=== PATIENT | female | born 1970 | race Caucasian/White ===

== ENCOUNTER → 2019-05-05 13:29 | Outpatient (CLI) | payer OTHER, SELFPAY ==
--- NOTE | 2019-05-05 | DI.CT.S_ITS ---
PROCEDURE: CT LE RT WO CON INDICATIONS: R Calcaneous Fracture TECHNIQUE: Noncontrast 1-1.5 mm axial sections acquired from above the tibiotalar joint to the bottom of the calcaneus, with coronal and sagittal reformats. COMPARISON: [facility] Outside Film, RG, CALCANEUS MIN 2VW (RT), 04/29/2019, 21:13. FINDINGS: Image quality: Excellent. Bones: Severely comminuted calcaneal fracture is seen with intra-articular extension to the subtalar joint. There is mild overall height loss. The talus appears grossly intact. There is suggestion of pre-existing lytic or cystic lesion, with sclerotic margins in particular the anterior calcaneus on image 67 series 5 (please see montage image). Potentially this could represent large intraosseous lipoma. Soft tissues: Circumferential hindfoot subcutaneous edema. Achilles tendon appears grossly intact IMPRESSION: Severely comminuted calcaneal fracture with mild height loss. Intra-articular extension to the subtalar joint where there is gross articular surface irregularity. The appearance suggests pre-existing lytic or cystic lesion with sclerotic margins, such as large intraosseous lipoma, therefore potentially pathologic fracture. If clinically warranted, further evaluation with contrast-enhanced MRI could be performed at appropriate time. Dictated by: Don Arteaga M.D. on 05/05/2019 at 15:03 Approved by: Don Arteaga M.D. on 05/05/2019 at 15:08
== END ==
PROVIDERS: Visit Provider Orthopaedic Surgery
DX: S92.061A Displaced intraarticular fracture of right calcaneus, initial encounter for closed fracture (principal); X58.XXXA Exposure to other specified factors, initial encounter
CPT/HCPCS: 73700

== ENCOUNTER 2019-05-13 09:52 | Day surgery (SDC) | payer OTHER, SELFPAY ==
[2019-05-12 14:46] VITALS: BMI 27.4
[2019-05-13] VITALS (15 sets, daily range): BP systolic 94–129; BP diastolic 58–78; PULSE 68–99; RESP 12–20; TEMP 36.3–37; O2SAT 95–99; BMI 27.4
--- NOTE | 2019-05-13 | PATH_ITS ---
[facility] Accession Number: [id number] . 01 Material submitted: . ankle - RIGHT ANKLE . 01 Clinical history: . RIGHT CALCANEOUS LESION . 01 Diagnosis: Right Ankle, Calcaneus Lesion, Biopsy: Trabecular bone and interspersed marrow with changes consistent with fracture site changes. Focal collection of adipocytes and fat necrosis, suggestive of a benign intraosseous lipoma, see comment. Negative for malignancy. [facility]05[facility] . 01 Comment: The histologic features are consistent with fracture site changes and also compatible with the radiologic impression of intraosseous lipoma. . There is no evidence of malignancy. . 01 Electronically signed: . Terrell Hansen MD, Pathologist NPI- [id number] . 01 Gross description: . Received in formalin, labeled R calcaneus lesion, are multiple fragments of niño-brown semi-translucent and focally gritty tissue (2.6 x 2.0 x 0.2 cm in aggregate). Filtered, decalcified, and entirely submitted in cassette A1. ([id number]) /MRV . 01 Pathologist provided ICD-10: S92.061D . 01 CPT . 475908, [id number] Performed at: [address] [facility], [place], [place] [id number] MD Issac Lopez MD Phone: [phone]
--- NOTE | 2019-05-13 | DI.RAD.S_ITS ---
PROCEDURE: XR ANKLE RT MIN 3V INDICATIONS: ORIF RIGHT ANKLE TECHNIQUE: 8 views of the ankle were acquired. COMPARISON: None. FINDINGS: Spot intraoperative fluoroscopic images demonstrating calcaneal fixation with malleable plate and screws. There is expected intraoperative alignment. Dictated by: Don Arteaga M.D. on 05/13/2019 at 14:26 Approved by: Don Arteaga M.D. on 05/13/2019 at 14:27
--- NOTE | 2019-05-13 10:47 | PM.PREOP ---
Pre-operative Note Interval Note History & Physical reviewed/Exam performed by Physician: Yes Changes to H&P: No
[2019-05-13] MEDS: CEFAZOLIN 2 GM/100 ML FROZ.PIGGY IV ×2 (11:20→19:53)
--- NOTE | 2019-05-13 11:22 | SUR.PREOP ---
Block start time [1055]. Popliteal and Adductor blocks performed by Dr. Dariusz Yancey on OPD room 5. Monitoring initiated and maintained throughout procedure. Medications administered by anesthesiologist. Oxygen given per anesthesiologist instructions. Patient remained stable throughout procedure, no adverse reactions noted. Block end time [1115].
--- NOTE | 2019-05-13 13:23 | PM.PROC.1 ---
Procedures Date/Time Date of procedure: 05/13/19 Time of procedure: 10:50 General Procedure description: Ultrasound guided popliteal sciatic and adductor canl saphenous nerve blocks for post op pain control after right calcaneous by Dr. Mills. Risk and benefits of procedure discussed with patient. ASA monitoring applied to patient. Oxygen given via nasal cannula. 2 mg Versed and 100 mcg fentanyl given for procedural sedation. Skin site was prepped with chlorhexidine and allowed to fully dry. Sterile gloves, mask, hat and probe cover were used to maintain sterility. 2% lidocaine and 30ga needle was used to make a small skin wheal at needle insertion site. Under ultrasound guidance, a 21ga 100mm Pajunk needle was directed near the division of the sciatic nerve into tibial and peroneal nerve in the popliteal fossa (lateral approach). Patient reported no parasthesias. After negative aspiration, 20 mL 0.5% ropivicaine and 5mg dexamethasone were injected around sciatic nerve. Patient tolerated procedure well. For adductor canal block, 100mm Pajunk needle was guided into the adductor canal near the femoral artery under US guidance. After negative aspiration, 20ml of 0.5% ropivacaine and 5mg dexamethasone was injected.
--- NOTE | 2019-05-13 13:27 | P.PCN_ITS ---
Procedures Date/Time Date of procedure: 05/13/19 Time of procedure: 10:50 General Procedure description: Ultrasound guided popliteal sciatic and adductor canl saphenous nerve blocks for post op pain control after right calcaneous by Dr. Mills. Risk and benefits of procedure discussed with patient. ASA monitoring applied to patient. Oxygen given via nasal cannula. 2 mg Versed and 100 mcg fentanyl given for procedural sedation. Skin site was prepped with chlorhexidine and allowed to fully dry. Sterile gloves, mask, hat and probe cover were used to maintain sterility. 2% lidocaine and 30ga needle was used to make a small skin wheal at needle insertion site. Under ultrasound guidance, a 21ga 100mm Pajunk needle was directed near the division of the sciatic nerve into tibial and peroneal nerve in the popliteal fossa (lateral approach). Patient reported no parasthesias. After negative aspiration, 20 mL 0.5% ropivicaine and 5mg dex amethasone were injected around sciatic nerve. Patient tolerated procedure well. For adductor canal block, 100mm Pajunk needle was guided into the adductor canal near the femoral artery under US guidance. After negative aspiration, 20ml of 0.5% ropivacaine and 5mg dexamethasone was injected.
[2019-05-13] MEDS: THROMBIN (RECOMBINANT) 5,000 UNIT VIAL 5000 UNIT TOP (14:07)
[2019-05-13] MEDS: LACTATED RINGERS 1,000 ML 42 ML IV (14:07)
--- NOTE | 2019-05-13 14:56 | PM.OP.1 ---
Operative Date/Time/Diagnoses Date of procedure: 05/13/19 Time of procedure: 12:00 Pre-op diagnosis: 1. Displaced intra-articular fracture right calcaneus S92. 061 2. Pathological fracture right calcaneus 3. Bone cyst, interosseous lipoma right foot Post-op diagnosis: same Procedure & Clinicians Procedure: 1. Open reduction internal fixation right calcaneus CPT code 68714 2. Bone biopsy right calcaneus CPT code 46799 Same procedure as scheduled: Yes Indications: The patient is a 47-year-old female with displaced intra-articular right calcaneus fracture with a pathologic lesion likely representing an intraosseous lipoma. The patient is indicated for open reduction internal fixation of the displaced calcaneal fracture to avoid posttraumatic arthritis. She has been indicated for open biopsy of the lesion. We discussed a biopsy and bone grafting and open reduction internal fixation. Risks benefits and alternatives were discussed with the patient. These included but were not limited to infection, nonunion, malunion, persistent pain, wound healing problems, amputation, DVT, pulmonary embolism, stroke paralysis, , symptomatic hardware, need for additional procedures. The patient has elected to proceed with surgery. Consent was signed in the office. The patient anticipates nonweightbearing 10-12 weeks. She will start aspirin for DVT prophylaxis after surgery. She has no previous history of blood clots. She will come into the hospital overnight and likely discharge on postop day 1. Surgeon: Lilliam Mills Orthopedic Physical Therapist: Shey Melvin Anesthesia Type: General and Peripheral nerve block Operative Notes Findings: Displaced intra-articular calcaneus fracture on the right side with large bone void with hematologic and small of fat globules. Once area was curetted large void in the middle and anterior calcaneus was filled with cancellous chips. The posterior facet split was reduced and a perimeter plate was placed from the Arthrex set, small Closure Type: primary Specimen(s): other (Tissue bone calcaneus lesion for culture and path) Applied: implant(s) (Arthrex small size right perimeter plate calcaneus, allograft chips) Estimated Blood Loss (mL): 30 Blood products transfused: none Tourniquet time (min): 95 Procedure in detail: After obtaining written informed consent. The patient was seen in the preoperative area and her site of surgery was marked. The patient was then taken back to the block room where a peripheral nerve block was placed by the anesthesia team for postoperative pain relief. Patient was then brought to the operating room. General anesthesia was administered. The patient was then positioned in the lateral position on a beanbag on the operative table. All bony prominences well padded. An axillary roll was placed. An SCD was placed on the contralateral leg. A well-padded thigh tourniquet was placed on the operative leg. Patient's operative leg was then prepped and draped in the standard sterile fashion. A formal time-out procedure was performed confirming the patient's side and site of surgery administration of preoperative antibiotics and presence of informed consent. Exsanguination with the Esmarch tourniquet was inflated 250 mm of mercury. At that time the lateral extensile approach was performed. Full-thickness flaps were raised using a no-touch technique. The peroneal tendons were elevated off the lateral wall of the calcaneus. The lateral wall was osteotomized and removed. Three K-wires were used to retract the skin flap. Fortunately this fracture pattern there was a no significant heel varus. Once the lateral wall was removed the large cystic void in the central calcaneus was exposed. This was carefully exposed and a curette and a pituitary were used to take samples to be sent for culture and pathology. This appeared grossly at hemorrhagic with blood clot and small fat globules. This was carefully shelled out leaving the medial cortex intact as much as possible. Next the wound was thoroughly irrigated and gloves were changed. Attention was turned to reducing the posterior facet. This was in 2 pieces using the [place] elevator and a K-wire as a joystick the lateral posterior facet piece was rotated and elevated back up to match the medial part of the posterior facet and restore Bohler's angle. This was pinned into place with K-wires followed by plate spent of a cannulated screw through the posterior facet. Next the bone void was packed with nearly 15 cc of cancellous chips which filled the area very well. And the lateral wall was replaced and a small perimeter plate was then placed over the lateral aspect of the calcaneus and secured anteriorly and posteriorly with BB tacks provisionally and then with a combination of nonlocking screws 1st followed by locking screws. The end of the case the posterior nonlocking screw was replaced with a locking screw for less prominence. Once this was completed final x-rays were obtained in lateral and oblique views is and Barcenas axial to demonstrate appropriate hardware placement. The plate was noted to be clear of the calcaneal cuboid joint. The posterior facet was reduced. Fluoroscopic imaging demonstrated appropriate religion of Bohler's angle and the Chery ankle. The Broden views demonstrated congruent posterior facet reduction. One small 0.45 K-wire was left deep anteriorly to support the reduction. The tourniquet was released and hemostasis was achieved. A deep medium Hemovac drain was placed exiting in line with the incision. Flap was then repaired in layers using 0 Vicryl and 3 O nylon. Flap was able to be closed without difficulty. Bulky dressing and splint were placed with bulky Fiore Cotton. The patient was woken from anesthesia and taken to recovery room in good condition. There no immediate complications from this procedure. All counts were correct. Complications: none Condition: stable Disposition: PACU Plan for aftercare: The patient will be nonweightbearing on the right lower extremity for 10-12 weeks. The patient will start aspirin 325 mg daily on postop day 1 for DVT prophylaxis. The patient will have the drain removed in the morning prior to being discharged. The patient will follow up in clinic 2 weeks for incision inspection at that time she will either be switched to a boot or into a splint or cast as wound healing and determines. Sutures will stay in place 2-4 weeks. At 6 weeks postop the patient will have an x-ray.
--- NOTE | 2019-05-13 15:10 | P.OP_ITS ---
Operative Date/Time/Diagnoses Date of procedure: 05/13/19 Time of procedure: 12:00 Pre-op diagnosis: 1. Displaced intra-articular fracture right calcaneus S92. 061 2. Pathological fracture right calcaneus 3. Bone cyst, interosseous lipoma right foot Post-op diagnosis: same Procedure & Clinicians Procedure: 1. Open reduction internal fixation right calcaneus CPT code 35620 2. Bone biopsy right calcaneus CPT code 36998 Same procedure as scheduled: Yes Indications: The patient is a 47-year-old female with displaced intra-articular right calcaneus fracture with a pathologic lesion likely representing an intraosseous lipoma. The patient is indicated for open reduction internal fixation of the displaced calcaneal fracture to avoid posttraumatic arthritis. She has been indicated for open biopsy of the lesion. We discussed a biopsy and bone grafting and open reduction internal fixation. Risks benefits and alternatives were discussed with the patient. These included but were not limited to infection, nonunion, malunion, persistent pain, wound healing problems, amputation, DVT, pulmonary embolism, stroke paralysis, , symp tomatic hardware, need for additional procedures. The patient has elected to proceed with surgery. Consent was signed in the office. The patient anticipates nonweightbearing 10-12 weeks. She will start aspirin for DVT prophylaxis after surgery. She has no previous history of blood clots. She will come into the hospital overnight and likely discharge on postop day 1. Surgeon: Lilliam Mills Vice President Of Instruction: Shey Melvin Anesthesia Type: General and Peripheral nerve block Operative Notes Findings: Displaced intra-articular calcaneus fracture on the right side with large bone void with hematologic and small of fat globules. Once area was curetted large void in the middle and anterior calcaneus was filled with cancellous chips. The posterior facet split was reduced and a perimeter plate was placed from the Arthrex set, small Closure Type: primary Specimen(s): other (Tissue bone calcaneus lesion for culture and path) Applied: implant(s) (Arthrex small size right perimeter plate calcaneus, allograft chips) Estimated Blood Loss (mL): 30 Blood products transfused: none Tourniquet time (min): 95 Procedure in detail: After obtaining written informed consent. The patient was seen in the preoperative area and her site of surgery was marked. The patient was then taken back to the block room where a peripheral nerve block was placed by the anesthesia team for postoperative pain relief. Patient was then brought to the operating room. General anesthesia was administered. The patient was then positioned in the lateral position on a beanbag on the operative table. All bony prominences well padded. An axillary roll was placed. An SCD was p laced on the contralateral leg. A well-padded thigh tourniquet was placed on the operative leg. Patient's operative leg was then prepped and draped in the standard sterile fashion. A formal time-out procedure was performed confirming the patient's side and site of surgery administration of preoperative antibiotics and presence of informed consent. Exsanguination with the Esmarch tourniquet was inflated 250 mm of mercury. At that time the lateral extensile approach was performed. Full-thickness flaps were raised using a no-touch technique. The peroneal tendons were elevated off the lateral wall of the calcaneus. The lateral wall was osteotomized and removed. Three K-wires were used to retract the skin flap. Fortunately this fracture pattern there was a no significant heel varus. Once the lateral wall was removed the large cystic void in the central calcaneus was exposed. This was carefully exposed and a curette and a pituitary were used to take samples to be sent for culture and pathology. This appeared grossly at hemorrhagic with blood clot and small fat globules. This was carefully shelled out leaving the medial cortex intact as much as possible. Next the wound was thoroughly irrigated and gloves were changed. Attention was turned to reducing the posterior facet. This was in 2 pieces using the [place] elevator and a K-wire as a joystick the lateral posterior facet piece was rotated and elevated back up to match the medial part of the posterior facet and restore Bohler's angle. This was pinned into place with K-wires followed by plate spent of a cannulated screw through the posterior facet. Next the bone void was packed with nearly 15 cc of cancellous chips which filled the area very well. And the lateral wall was replaced and a small perimeter plate w as then placed over the lateral aspect of the calcaneus and secured anteriorly and posteriorly with BB tacks provisionally and then with a combination of nonlocking screws 1st followed by locking screws. The end of the case the posterior nonlocking screw was replaced with a locking screw for less prominence. Once this was completed final x-rays were obtained in lateral and oblique views is and Barcenas axial to demonstrate appropriate hardware placement. The plate was noted to be clear of the calcaneal cuboid joint. The posterior facet was reduced. Fluoroscopic imaging demonstrated appropriate religious of Bohler's angle and the Chery ankle. The Broden views demonstrated congruent posterior facet reduction. One small 0.45 K-wire was left deep anteriorly to support the reduction. The tourniquet was released and hemostasis was achieved. A deep medium Hemovac drain was placed exiting in line with the incision. Flap was then repaired in layers using 0 Vicryl and 3 O nylon. Flap was able to be closed without difficulty. Bulky dressing and splint were placed with bulky Fiore Cotton. The patient was woken from anesthesia and taken to recovery room in good condition. There no immediate complications from this procedure. All counts were correct. Complications: none Condition: stable Disposition: PACU Plan for aftercare: The patient will be nonweightbearing on the right lower extremity for 10-12 weeks. The patient will start aspirin 325 mg daily on p ostop day 1 for DVT prophylaxis. The patient will have the drain removed in the morning prior to being discharged. The patient will follow up in clinic 2 weeks for incision inspection at that time she will either be switched to a boot or into a splint or cast as wound healing and determines. Sutures will stay in place 2-4 weeks. At 6 weeks postop the patient will have an x-ray.
[2019-05-13] MEDS: LACTATED RINGERS 1,000 ML 125 ML IV (16:37)
[2019-05-13] MEDS: ACETAMINOPHEN 325 MG TABLET 975 MG PO (16:37)
--- NOTE | 2019-05-13 17:40 | PT.IIE ---
Current Diagnoses Pathological fracture in other disease, right femur, initial encounter for fracture (05/13/19) Other cyst of bone, unspecified ankle and foot (05/13/19) Displaced intraarticular fracture of right calcaneus, initial encounter for closed fracture (05/13/19) Surgery Performed Operation Date: 05/13/19 11:15 Actual Procedures p deep biopsy and ORIF of right calcaneal fracture with allograft(Right) - Lilliam Mills MD Medical History (Last Updated 05/13/19 @ 10:43 by Sharon Garcia RN) Fracture of right heel (Acute ~04/2019) Migraines (Acute) [place] teeth extracted (Acute) Physical Therapy Inpatient Evaluation/Re-Eval M1 PT/OT-IP Prior Functional Status Start: 05/13/19 17:22 Freq: NEEDED Status: Active Protocol: Document 05/13/19 17:22 EA (Rec: 05/13/19 17:39 EA [id number]) Medical Review Prior Functional Status Medical History Reviewed Yes Diet/Fluid Consistency Regular Communication No limitation Mobility and Gait Indep with no limitation Activities of Daily Living and IADL's Indep; works in the office of [employer] Social History Household Members significant other children Living Arrangements House Number of Floors (Floors) Two Floors Number of Stairs To Enter/Railing? 15 with single rails. Patient will stay at the main floor once d/c Home Equipment Crutches Employment Status [employer] Former Employed Additional Social History Comment Patient lives with her partner and 2 children 16 y/o and 21. She works in the [employer]. M2 PT-IP Current Condition Start: 05/13/19 17:22 Freq: NEEDED Status: Active Protocol: Document 05/13/19 17:22 EA (Rec: 05/13/19 17:39 EA [id number]) Physical Therapy Current Condition Current Condition Evaluation Date 05/13/19 Treatment Diagnosis S/P ORIF right calcaneus secondary to fracture Precautions Other Precautions NWB to affected leg in 6 wks Weight Bearing Status Weight Bearing Status Non-Weight Bearing M3 PT-IP Subjective Start: 05/13/19 17:22 Freq: NEEDED Status: Active Protocol: Document 05/13/19 17:22 EA (Rec: 05/13/19 17:39 EA [id number]) Subjective Physical Therapy Visit Type Type Initial Evaluation Visit Start Time 16:55 Visit Stop Time 17:25 Total Visit Minutes 30 Physical Therapy Visit Comments Patient Comments I would like to use the commode. Patient would like to learn to use crutches and walker prior to d/c tomorrow. Patient Goals Indep in all transfers prior to d/c Therapy Pain Assessment Pain Present Pain Present Denied Pain M4 PT-IP Mobility and Gait Start: 05/13/19 17:22 Freq: NEEDED Status: Active Protocol: Document 05/13/19 17:22 HAYES (Rec: 05/13/19 17:39 EA [id number]) PT-Bed Mobility Assessment Supine to Sit Supine to Sit Standby Assistance Sit to Supine Sit to Supine Independent Scooting Scooting to Edge of Bed Standby Assistance PT-Transfer Assessment Sit to and From Stand Sit to and from Stand Contact Guard Assistance Equipment Transfer Assistive Device Gait Belt Front Wheeled Walker Transfers Transfer Destination Bed Bedside Commode Transfer Technique step to using walker Transfer Ability Level of Assist Contact Guard Assistance Comments Mobility Comments NWB to RLE Gait Assessment Gait Gait Assistance Required: Contact Guard Assist Distance (Feet) 8 Assistive Devices Assistive Device Gait Belt Front Wheeled Walker Orthotic/Prosthetic Devices or Brace: Yes Comments Gait Comments Patient is a non weight bearing pre-cautions to RLE; using walker she was able to demontrate good step to pattern. PT-Balance Assessment Sitting Balance and Reactions Static Sitting Balance Ability Good Standing Balance and Reactions Static Standing Balance Ability Good M5 PT-IP Objective Assessments Start: 05/13/19 17:22 Freq: NEEDED Status: Active Protocol: Document 05/13/19 17:22 HAYES (Rec: 05/13/19 17:39 EA [id number]) Orientation Orientation/Cognition Level of Alertness Alert Orientation Name Age Month Date Language Function Ability No Deficits Noted Gross Range of Motion Upper Extremity ROM Assessment Within Functional Limits Lower Extremity ROM Assessment Right Impaired Impairments R ankle joint is immobilized Strength Upper Extremity Strength Assessment Within Functional Limits Lower Extremity Strength Assessment Right Impaired Ankle Right ankle cast Comments Strength Comments Both UE/LE strength are WFL except with right ankle major muscle which not tested due to cast Coordination Assessment Assessment Finger to Nose Test Normal Performance Pronation/Supination Test Normal Performance Sensation Assessment Sensation Gross Sensation Right LE Impaired Light Touch Absent Sensation Description Numbness M6 PT-IP Treatment Start: 05/13/19 17:22 Freq: NEEDED Status: Active Protocol: Document 05/13/19 17:22 EA (Rec: 05/13/19 17:39 EA [id number]) Physical Therapy Treatment Education Education Provided Precautions Weight Bearing Status Post-Op Packet Safety M7 PT-IP Assessment and Plan Start: 05/13/19 17:22 Freq: NEEDED Status: Active Protocol: Document 05/13/19 17:22 EA (Rec: 05/13/19 17:39 EA [id number]) PT Summary Assessment and Plan Potential Rehabilitation Potential Excellent Status of Condition at Evaluation Stable Summary Impairments Strength Balance Bed Mobility Transfers Gait Activity Tolerance Assessment Summary Patient exhibit decreased tolerance to mobility due to general body fatigue and lacked of sensory to R leg and therefore requires assistance at this time for safety. Patient would benefit with skilled PT to practice crutches and to improve transfer and mobility independence prior to d/c. Patient will likely reach functional independent goals. Goals Bed Mobility Goal Independent Transfer Goal Independent Gait Goal Independent Gait Distance 30 ft Other Goals Gait practice with the use of crutches as tolerated Days to Meet Goals 2 Frequency of Treatment Frequency Of Treatment Twice a Day Treatment Plan Physical Therapy Treatment Plan Bed Mobility Training Transfer Training Gait Training Therapeutic Exercise Balance Retraining Post Op Education Recommendations To Nursing Amount of Assist Needed 1 Person Assist Discharge Recommendations PT Discharge Recommendations Home with Assistance
--- NOTE | 2019-05-13 17:54 | PC.NURSE ---
Addendum entered by Mariposa Parker R.N. 05/13/19 23:25: Pt continues to deny pain to RLE. Remains unable to wiggle toes to right foot. Exposed toes to right foot remain warm and pink. RLE elevated on pillows x 2. Commode use with assistance. Non weight bearing. Ibuprofen for headache pain. No measurable drainage per hemovac this shift. Original Note: Pt to room 217 from PACU awake and conversant. Acknowledges understanding of no weight bearing RLE. Slider board to transfer pt from stretcher to bed. Assisted with walker and two staff members to bedside commode observing no weight bearing precautions. Voids without difficulty. Pt denies pain to RLE. Unable to wiggle exposed toes to right foot. Right exposed toes are warm to touch and pink in color. RLE elevated on pillows x 2 once returned to bed. Ice to RLE. Hemovac intact without any visible drainage. P.T. in to see patient. IV fluids infusing as ordered to right hand iv site without difficulty.
[2019-05-13] MEDS: DOCUSATE 100 MG CAPSULE PO (20:54)
[2019-05-13] MEDS: IBUPROFEN 400 MG TABLET 800 MG PO (20:54)
--- NOTE | 2019-05-13 23:39 | PC.NURSE ---
Addendum entered by Laisha Mccall R.N. 05/14/19 05:49: Denies any pain this morning; headache also resolved. Still unable to feel sensation in toes and unable to move toes. Toes are warm with good cap refill and pedal pulse palpable. Is able to feel sensation above knee. Addendum entered by Laisha Mccall R.N. 05/14/19 01:11: Complains of annoying spasm type discomfort in right thigh; medicated with Oxycodone. Original Note: Patient is alert and oriented. Breath sounds CTA with RA sat of 97%. HRR. Denies nausea. BT present but denies flatus. Chronic urinary urgency but is continent. Able to turn self in bed. Transfers to [facility] with walker and 1 assist; is NWB on right leg. Dressing to right LE is CDI. Hemovac is intact and compressed. Toes warm with good cap refill but patient states she is unable to feel toes and unable to move toes. Right leg is elevated on pillows and ice applied. Denies pain in right leg but does have 3/10 headache; declines further intervention. Fall risk score is high and bed alarm is activated.
[2019-05-14] MEDS: LACTATED RINGERS 1,000 ML 125 ML IV (01:08)
[2019-05-14] MEDS: OXYCODONE IR 5 MG TABLET PO ×3 (01:09→14:33)
[2019-05-14] MEDS: CEFAZOLIN 2 GM/100 ML FROZ.PIGGY IV (03:43)
[2019-05-14 05:40] VITALS: BP 95/73; PULSE 76; RESP 18; TEMP 36.7; O2SAT 98
[2019-05-14] MEDS: IBUPROFEN 400 MG TABLET 800 MG PO ×2 (05:45→14:34)
[2019-05-14 08:00] VITALS: BP 112/71; PULSE 75; RESP 16; TEMP 36.5; O2SAT 98
[2019-05-14] MEDS: ACETAMINOPHEN 325 MG TABLET 975 MG PO (09:20)
[2019-05-14] MEDS: ASPIRIN EC 325 MG TABLET PO (09:20)
[2019-05-14] MEDS: DOCUSATE 100 MG CAPSULE PO (09:20)
--- NOTE | 2019-05-14 10:31 | PM.DS.1 ---
History of Present Illness Date Patient Seen: 05/14/19 Time Patient Seen: 10:32 Chief complaint: *[id number] Narrative: Hospital day 2, postop day 1 following displaced intra articular right calcaneal fracture with ORIF by Dr. Mills. Patient has remained stable postoperatively. Pain controlled with oxycodone and ibuprofen. Legs been elevated. She has not been out of bed yet. She is nonweightbearing to the right leg. Her drain is to be removed today. Patient feels she is ready to go home today. Discharge Providers Discharge Date: 05/14/19 Primary care physician: Chela Bell MD Consults: 05/13/19 10:29 Consult to Anesthesiology Routine Comment: Consulting Provider: Anesthesiologist Reason for consultation: Post operative pain managment Has provider been notified: No 05/13/19 16:22 Consult to Physical Therapy Evaluate & Treat Comment: MADELIN REILLY Physician Instructions: Evaluate and Treat 05/14/19 10:16 Consult to Physical Therapy Evaluate & Treat Comment: FWW for home use. Physician Instructions: Evaluate and Treat Discharge provider: Willem Cloud PA-C Summary Discharge Diagnosis: Status post displaced intra-articular right calcaneal fracture with ORIF. Hospital Course: Patient brought to hospital on 06/13/2019 for above noted surgery. She remained stable postoperatively. Drain was removed on postop day 1. Dressing changed. She was discharged home on postop day 1 after cleared by PT. Status at Discharge Cognitive/behavioral status at discharge: oriented Functional status at discharge: uses cane/walker Overall status at discharge: patient is progressing back to baseline Time Spent with Patient Less than 30 minutes Exam Vital Signs (past 8 hours): - 05/14/19 05:40 05/14/19 08:00 Temperature 98.0 F 97.7 F Pulse Rate 76 75 Respiratory Rate 18 16 Blood Pressure 95/73 112/71 Pulse Oximetry 98 98 Oxygen Delivery Method Room Air Oxygen Flow Rate 0 Narrative Exam Narrative: Alert, oriented no acute distress resting in bed. Right leg. Bulky postop dressing in place with posterior splint. Dressing was removed and drain removed from heel. No signs of infection or inflammation. Good pulses and sensation to foot. Dry bulky dressing reapplied along with splint. Discharge Plan Discharge Plan Patient Disposition: Home Discharge comment: Discharge to home after cleared by PT. Given prescription for oxycodone 5 mg and ibuprofen 800 mg. Patient to be nonweightbearing to the right leg x2 weeks. Follow-up appointment with Dr. Mills in 2 weeks. Discharge Med Rec/Prescriptions Prescriptions: New oxycodone 5 mg Tablet 5 mg PO Q3HR PRN (Reason: Pain, Moderate (4-6)) Qty: 40 RF: 0 acetaminophen 325 mg Tablet 975 mg PO TID Qty: 30 RF: 0 aspirin 325 mg Tablet,Delayed Release (Dr/Ec) 325 mg PO DAILY Qty: 60 RF: 0 Continued ibuprofen 800 mg Tablet 800 mg PO TID RF: 0 Follow up/Referrals: Chela Bell MD [Primary Care Provider] - Discharge Orders: Discharge (Order); Ordered 05/14/19 Ordered By: Willem Cloud Provider Discharge Instructions Diet: Diet as Tolerated Activity: Nonweightbearing right leg. Use walker as needed. Keep dressing and splint to lower leg dry. Skin/Wound/Dressing Care Report to your healthcare provider any signs of infection, such as:: chills, fever, night sweats, increased pain, unusual drainage and unusual redness Visit Report/Discharge Packet Instructions: DI for Open Reduction Internal Fixation Surgery Discharge Data Primary Care Provider: Chela Bell Attending Provider: Lililam Mills VTE Deep Vein Thrombosis/Pulmonary Embolism Present on Admission: No
--- NOTE | 2019-05-14 10:40 | PC.NURSE ---
Addendum entered by Toyin Balderas R.N. 05/14/19 14:44: PAIN/DC - reports discomfort 2 on scale 0/10, discussed pain mgt for transport home and given 5mg po oxycodone and 800mg po ibuprofen now with juice and crackers, reviewed the dc instructions, paperwork provided, the script was taken to family pharmacy earlier by her friend who will be returning approx 1600 to take home. Addendum entered by Toyin Balderas R.N. 05/14/19 12:23: MS/PAIN - pt up with PT, nwb, wc down for stair practice and ret bed, cleared for dc home, pain managed with earlier oxycodone and discussed plan to admin prior to dc home this afternoon, able now wiggle toes. Original Note: AM NOTE - pt is alert, states pain managed with earlier medications, rle elev pillow supports, splint w/felicia wrap over, only toes visible, skin is pink but unable to wiggle or move toes at assessment, Bart SALOMON in this am and he removed hemovac, given oxycodone 5mg po after breakfast and prior to mobilizing with phys therapy.
[2019-05-14 11:39] VITALS: BP 115/73; PULSE 78; RESP 16; TEMP 36.9; O2SAT 99
--- NOTE | 2019-05-14 11:45 | PT.IPTN ---
Current Diagnoses Pathological fracture in other disease, right femur, initial encounter for fracture (05/13/19) Other cyst of bone, unspecified ankle and foot (05/13/19) Displaced intraarticular fracture of right calcaneus, initial encounter for closed fracture (05/13/19) Surgery Performed Operation Date: 05/13/19 11:15 Actual Procedures p deep biopsy and ORIF of right calcaneal fracture with allograft(Right) - Lilliam Mills MD Physical Therapy Treatment Note M2 PT-IP Current Condition Start: 05/13/19 17:22 Freq: NEEDED Status: Active Protocol: Document 05/13/19 17:22 EA (Rec: 05/13/19 17:39 EA [id number]) Physical Therapy Current Condition Current Condition Evaluation Date 05/13/19 Treatment Diagnosis S/P ORIF right calcaneus secondary to fracture Precautions Other Precautions NWB to affected leg in 6 wks Weight Bearing Status Weight Bearing Status Non-Weight Bearing M3 PT-IP Subjective Start: 05/13/19 17:22 Freq: NEEDED Status: Active Protocol: Document 05/14/19 11:45 GGD (Rec: 05/14/19 12:21 GGD [id number]) Subjective Physical Therapy Visit Type Type Treatment Note Visit Start Time 11:17 Visit Stop Time 11:47 Total Visit Minutes 30 Number of LITHOGRAPHIC STRIPPER Visits 1 Physical Therapy Visit Comments Patient Comments Pt states she feels unsteady with crutches and would like to use a FWW. Therapy Pain Assessment Pain When Pain Assessed During Mobility Pain Present Pain Present Pain Reported M4 PT-IP Mobility and Gait Start: 05/13/19 17:22 Freq: NEEDED Status: Active Protocol: Document 05/14/19 11:45 GGD (Rec: 05/14/19 12:21 GGD [id number]) PT-Bed Mobility Assessment Supine to Sit Supine to Sit Independent Sit to Supine Sit to Supine Independent Scooting Scooting to Edge of Bed Independent PT-Transfer Assessment Sit to and From Stand Sit to and from Stand Contact Guard Assistance Equipment Transfer Assistive Device Gait Belt Front Wheeled Walker Transfers Transfer Destination Bed Toilet Wheelchair Transfer Ability Level of Assist Contact Guard Assistance Comments Mobility Comments NWB to RLE Gait Assessment Gait Gait Assistance Required: Contact Guard Assist Distance (Feet) 25 Assistive Devices Assistive Device Gait Belt Front Wheeled Walker Orthotic/Prosthetic Devices or Brace: Yes Stair Climbing Assessment Evaluation Level of Assist On Stairs Contact Guard Assistance Devices Stair Climbing Assistive Devices Front Wheel Walker Technique/Endurance Stair Climbing Direction Ascend and Descend Stair Climbing Technique Step to Step Number of Steps Climbed 1 Stair Climbing Set # Repetitions (reps) 2 M5 PT-IP Objective Assessments Start: 05/13/19 17:22 Freq: NEEDED Status: Active Protocol: Document 05/13/19 17:22 EA (Rec: 05/13/19 17:39 EA [id number]) Orientation Orientation/Cognition Level of Alertness Alert Orientation Name Age Month Date Language Function Ability No Deficits Noted Gross Range of Motion Upper Extremity ROM Assessment Within Functional Limits Lower Extremity ROM Assessment Right Impaired Impairments R ankle joint is immobilized Strength Upper Extremity Strength Assessment Within Functional Limits Lower Extremity Strength Assessment Right Impaired Ankle Right ankle cast Comments Strength Comments Both UE/LE strength are WFL except with right ankle major muscle which not tested due to cast Coordination Assessment Assessment Finger to Nose Test Normal Performance Pronation/Supination Test Normal Performance Sensation Assessment Sensation Gross Sensation Right LE Impaired Light Touch Absent Sensation Description Numbness M6 PT-IP Treatment Start: 05/13/19 17:22 Freq: NEEDED Status: Active Protocol: Document 05/13/19 17:22 EA (Rec: 05/13/19 17:39 EA [id number]) Physical Therapy Treatment Education Education Provided Precautions Weight Bearing Status Post-Op Packet Safety M7 PT-IP Assessment and Plan Start: 05/13/19 17:22 Freq: NEEDED Status: Active Protocol: Document 05/14/19 11:45 GGD (Rec: 05/14/19 12:21 GGD [id number]) PT Summary Assessment and Plan Summary Assessment Summary Pt improving with mobility. She was able to progress gait distance. She was safe and stable with stair mobility. Pt safe for home D/C when medically stable. Frequency of Treatment Frequency Of Treatment Twice a Day Treatment Plan Physical Therapy Treatment Plan Bed Mobility Training Transfer Training Gait Training Therapeutic Exercise Balance Retraining Post Op Education Recommendations To Nursing Amount of Assist Needed 1 Person Assist Discharge Recommendations PT Discharge Recommendations Home with Assistance
--- NOTE | 2019-05-14 12:21 | CM.DANOTE ---
DCP: Case received, EMR reviewed and met with patient. Introduced self and role. Was able to obtain baseline health information from patient. DCP assessment completed with information currently available. Patient is a 48 year old female who admitted yesterday morning to the care of the orthopedic team. PCP: Dr. Bell. Payer: confirmed: [facility]. Patient came to the hospital for a surgical procedure. She had sustained a fracture of her foot approximately 2 weeks ago at a [facility] in [place]. She had surgery here, an open reduction internal fixation of right calcaneus. Patient stated that when she was at the [facility], her innertube flipped over causing trauma to her foot. She went to the ER there in [place], and had planned surgery here. Prior to surgery, patient stated, she has had help from family, and uses a scooter that she obtained from her family member. She has her at home, Ceasar, and 20 year old daughter. She had been non-weight bearing, wearing a splint. She stated, I still use the stairs at home, I just scoot on my bottom. P: Patient is to be discharged home today after working with physical therapy. She will be given some crutches for home use. She will follow up with orthopedist in their office. Lanette Churchill RN/[place] [employer]
[2019-05-14 15:30] VITALS: BP 117/77; PULSE 91; RESP 18; TEMP 36.6; O2SAT 100
== END 2019-05-14 17:01 | disposition home or self-care (01) ==
LOC: OR 09:53 → AC 09:54
PROVIDERS: PCP Family Medicine; Visit Provider Orthopaedic Surgery Foot and Ankle Surgery
PROC: (CPT 28415; principal; 2019-05-13 11:15)
DX: S92.061A Displaced intraarticular fracture of right calcaneus, initial encounter for closed fracture (principal); M85.671 Other cyst of bone, right ankle and foot; G89.18 Other acute postprocedural pain; W16.022A Fall into swimming pool striking bottom causing other injury, initial encounter
CPT/HCPCS: 28415; 64445; 28118; 64450; 73610; 76000; 87070; 87075; 87205; 97116; 97161; 97530; 97535; J0690; J1100; J2250; J2405; J2704; J2795; J3010